=== PATIENT | female | born 1940 | race Caucasian/White ===

== ENCOUNTER 2017-11-27 08:05 | Day surgery (SDC) | payer OTHER ==
[2017-11-27] MEDS ORDERED: MIDAZOLAM 2 MG/2 ML VIAL ONE (08:16)
[2017-11-27] MEDS ORDERED: LIDOCAINE 1% 2 ML INJ ID PRN (08:19)
[2017-11-27] MEDS ORDERED: LR 1,000 ML IV ONE (08:19)
[2017-11-27] MEDS ORDERED: fentaNYL 100 MCG/2 ML INJ ONE (08:41)
[2017-11-27] MEDS ORDERED: PROPOFOL/EMULSION 500 MG/50 ML BOTTLE IV ONE (08:41)
--- NOTE | 2017-11-27 09:42 | PDGENHP ---
History & Physical Chief Complaint: Iron deficiency anemia History of Present Illness: Newly diagnosed iron deficiency anemia. Personal history of colon polyps. Pertinent Past, Social, Family History: PMH: Colon polyps. No heart, lung or liver diesease. No kidney disease. No DM. FH: negative for anemia or colon cancer. SH: no tobacco or ETOH Relevant Physical Exam: NAD. CTA B/L. RRR without m/r/g. GI soft. NABS. No R/ G Cardiorespiratory Assessment: ASA II. EGD/Colonoscopy with MAC
[2017-11-27] MEDS ORDERED: MEPERIDINE 25 MG/0.5 ML AMP IVP PRN (09:58)
[2017-11-27] MEDS ORDERED: LR 500 ML IV PRN (09:58)
[2017-11-27] MEDS ORDERED: NALOXONE HCL 0.4 MG/ML INJ IVP PRN (09:58)
[2017-11-27] MEDS ORDERED: DEXAMETHASONE 4 MG/ML VIAL IVP PRN (09:58)
[2017-11-27] MEDS ORDERED: ONDANSETRON 4 MG/2 ML VIAL IVP PRN (09:58)
[2017-11-27] MEDS ORDERED: HYDROmorphONE/DILAUDID 2 MG/ML INJ IVP PRN (09:58)
[2017-11-27] MEDS ORDERED: fentaNYL 100 MCG/2 ML INJ IVP PRN (09:58)
--- NOTE | 2017-11-27 09:58 | PDANEPAE ---
ANE History of Present Illness Anemia, EGD/Colonoscopy ANE Past Medical History - Cardiovascular History Hx Hypertension: Yes Hx Arrhythmias: No Hx Chest Pain: No Hx Coronary Artery / Peripheral Vascular Disease: No Hx CHF / Valvular Disease: No Hx Palpitations: No - Pulmonary History Hx COPD: No Hx Asthma/Reactive Airway Disease: No Hx Recent Upper Respiratory Infection: No Hx Oxygen in Use at Home: No Hx Sleep Apnea: No Sleep Apnea Screening Result - Last Documented: Negative - Neurologic History Hx Cerebrovascular Accident: No Hx Seizures: No Hx Dementia: No Neurologic History Comment: Parkinson's - Dx 2005 - Endocrine History Hx Diabetes: No - Renal History Hx Renal Disorders: No - Liver History Hx Hepatic Disorders: No - Neurological & Psychiatric Hx Hx Neurological and Psychiatric Disorders: No - Cancer History Hx Cancer: No - GI History Hx Gastrointestinal Disorders: No - Other Health History Other Health History: wears glasses. anemia - Chronic Pain History Chronic Pain: No - Surgical History Prior Surgeries: broken nose, 1964. hysterectomy, in the '. hip fracture, 2009 ANE Review of Systems Review of Systems: - Exercise capacity METS (RN): 2 METS ANE Patient History - Allergies Allergies/Adverse Reactions: No Known Allergies Allergy (Verified 11/27/17 08:31) - Home Medications Home Medications: Amantadine HCl 10/23/17 [Last Taken 11/27/17 07:45] Aspirin 81mg (*) 10/23/17 [Last Taken 11/20/17] FOLIC ACID 10/23/17 [Last Taken 11/25/17] Lisinopril-Hctz 10-12.5 mg Tab 10/23/17 [Last Taken 11/20/17] Shingrix Adjuvant Component 10/23/17 [Last Taken Unknown] Sinemet 25/100 MG (*) 10/23/17 [Last Taken 11/27/17 07:30] Triamcinolone 0.1% Cream 10/23/17 [Last Taken Unknown] VITAMIN [id number] ACID TABLET 10/23/17 [Last Taken 11/25/17] Vitamin D3 10/23/17 [Last Taken 11/25/17] - NPO status NPO Since - Liquids (Date): 11/26/17 NPO Since - Liquids (Time): 22:00 NPO Since - Solids (Date): 11/26/17 NPO Since - Solids (Time): 17:00 - Smoking Hx Smoking Status: Never smoked - Family Anes Hx Family Hx Anesthesia Complications: none ANE Labs/Vital Signs - Vital Signs Blood Pressure: 136/74 Heart Rate: 101 Respiratory Rate: 18 O2 Sat (%): 96 Height: 160.02 cm Weight: 66.678 kg ANE Physical Exam - Airway Neck exam: FROM Mallampati Score: Class 1 Mouth exam: normal dental/mouth exam - Pulmonary Pulmonary: no respiratory distress - Cardiovascular Cardiovascular: regular rate and rhythym - ASA Status ASA Status: III ANE Anesthesia Plan Anesthesia Plan: GA with mask
--- NOTE | 2017-11-27 11:08 | GIREPORT ---
[facility] - Endoscopy Department Patient Name: Nena Schilling Procedure Date: 11/27/2017 9:39 AM Patient Type: Outpatient Attending / ER Physician: Michael Shay MD Procedure: Colonoscopy Indications: Iron deficiency anemia Providers: Michael Shay MD Medicines: Propofol per Anesthesia Complications: No immediate complications. Estimated blood loss: None. Description of Procedure: After obtaining informed consent, the scope was passed under direct vis ion. Throughout the procedure, the patient's blood pressure, pulse, and oxyg en saturations were monitored continuously. The Colonoscope was introduced through the anus and advanced to the cecum, identified by appendiceal orifice and ileocecal valve. The colonoscopy was performed without difficulty. The patient tolerated the procedure well. The quality of th e bowel preparation was adequate to identify polyps 6 mm and larger in si ze. Findings: The perianal and digital rectal examinations were normal. Pertinent negatives include normal sphincter tone and no palpable rectal lesions. The entire examined colon appeared normal. Estimated Blood Loss: Estimated blood loss: none. Post Op Diagnosis: - The entire examined colon is normal. - No specimens collected. - No cause for iron deficiency anemia. Recommendation: - Repeat colonoscopy is not recommended for surveillance. - Resume previous diet. - Continue present medications. - Iron supplementation. - Repeat CBC and iron panel in 3 months. - Patient has a contact number available for emergencies. The signs and symptoms of potential delayed complications were discussed with the pat ient. Return to normal activities tomorrow. Written discharge instructions we re provided to the patient. - Thank you for allowing me to be involved in the care of your patient. Attending Participation: I personally performed the entire procedure without the assistance of a fellow, resident or surg ical practice assistant. Michael Shay MD Michael Shay MD 11/27/2017 10:33:38 AM This report has been signed electronicallyDavid MD Jaspal Number of Addenda: 0 Note Initiated On: 11/27/2017 9:39 AM Total Procedure Duration Time 0 hours 22 minutes 52 seconds [email or web address]
--- NOTE | 2017-11-27 11:08 | GIREPORT ---
[facility] - Endoscopy Department Patient Name: Nena Schilling Procedure Date: 11/27/2017 9:39 AM Patient Type: Outpatient Attending / ER Physician: Michael Shay MD Procedure: Upper GI endoscopy Indications: Iron deficiency anemia Providers: Michael Shay MD Medicines: Propofol per Anesthesia Complications: No immediate complications. Description of Procedure: After obtaining informed consent, the endoscope was passed under direct vision. Throughout the procedure, the patient's blood pressure, pulse, and oxygen saturations were monitored continuously. The was introduced thro ugh the mouth, and advanced to the second part of duodenum. The upper GI endoscopy was accomplished without difficulty. The patient tolerated th e procedure well. Findings: Abnormal motility was noted in the esophagus. The cricopharyngeus was abnormal. There is a decrease in motility of the esophageal body. The d istal esophagus/lower esophageal sphincter is open. Tertiary peristaltic wave s are noted. This is likely related to her parkinsons disease. A large hiatal hernia was present. The duodenal bulb, first portion of the duodenum and second portion of the duodenum were normal. Biopsies for histology were taken with a cold for ceps for evaluation of celiac disease. Estimated Blood Loss: Estimated blood loss: none. Post Op Diagnosis: - Abnormal esophageal motility. Likely related to her age and parkinson s disease. - Large hiatal hernia. - Normal duodenal bulb, first portion of the duodenum and second portio n of the duodenum. Biopsied. - No endoscopic cause for iron deficiency found. Recommendation: - Await pathology results. - Perform a colonoscopy today. - Repleat iron. - Repeat CBC and fasting iron panel after 3 months of iron supplementat ion. - Return to physician data assistant as previously scheduled. - Thank you for allowing me to be involved in the care of your patient. Attending Participation: I personally performed the entire procedure without the assistance of a fellow, resident or surg ical data assistant. Michael Shay MD Michael Shay MD 11/27/2017 10:02:04 AM This report has been signed electronicallyDavid MD Jaspal Number of Addenda: 0 Note Initiated On: 11/27/2017 9:39 AM [email or web address]
[2017-11-27 11:46] VITALS: BP 122/72
--- NOTE | 2017-11-27 13:38 | POSTANESTH ---
Post Anesthetic Evaluation Cardiovascular Status: Normal, Stable Respiratory Status: Normal, Stable Level of Consciousness/Mental Status: Can Participate in Eval Pain Control: Adequate, Prn Tx Ordered Nausea/Vomiting Control: Adequate, Prn Tx Ordered Complications Possibly Related to Anesthesia: None Noted (Patient seen prior to DC from pre-op and was back to baseline and comfortable)
--- NOTE | 2017-11-27 15:42 | CPEKG ---
Test Reason : OPEN Blood Pressure : / mmHG Vent. Rate : 098 BPM Atrial Rate : 098 BPM P-R Int : 165 ms QRS Dur : 083 ms QT Int : 363 ms P-R-T Axes : 061 050 080 degrees QTc Int : 464 ms Sinus rhythm Borderline T wave abnormalities Confirmed by Taarn Meadows ([id number]) on 11/27/2017 3:41:54 PM Referred By: Confirmed By:Taran Meadows
== END 2017-11-27 11:58 | disposition home or self-care (01) ==
LOC: FSGY 08:05
PROVIDERS: ATTEND Internal Medicine Gastroenterology
DX: D50.9 Iron deficiency anemia, unspecified (principal); K23 Disorders of esophagus in diseases classified elsewhere; G20 Parkinson's disease; K44.9 Diaphragmatic hernia without obstruction or gangrene; I10 Essential (primary) hypertension
CPT/HCPCS: J2250; J2704; J3010